=== PATIENT | male | born 2000 | race Caucasian/White ===

== ENCOUNTER 2023-09-20 22:54 | Emergency (ER) | payer SELFPAY ==
[2023-09-20] MEDS: LORazepam 2 MG/ML SDV IM PRN (23:41)
[2023-09-20 23:43] LABS: BICARBONATE,ARTERIAL 23.4 mmol/L (22.0-26.0); CARBOXYHEMOGLOBIN 2.2 % (0.0-1.6); METHEMOGLOBIN 0.6 %; O2 SATURATION ARTERIAL 98.8 % (95.0-98.0); PCO2 ARTERIAL 28.2 mmHg (35.0-42.0); PO2 ARTERIAL 98.6 mmHg (75.0-100.0); TOTAL HEMOGLOBIN 14.6 g/dL (13.5-18.0)
[2023-09-21 00:04] LABS: BASOPHILS ABSOLUTE AUTO 0.05 K/uL (0.00-0.10); BASOPHILS PERCENT AUTO 0.5 % (0.1-1.3); EOSINOPHILS PERCENT AUTO 3.1 % (0.0-5.4); HEMATOCRIT 40.1 % (38.4-49.7); HEMOGLOBIN 14.1 g/dL (12.9-16.9); IMMATURE GRAN PERCENT AUTO 0.2 % (0.0-0.7); LYMPHOCYTES ABSOLUTE AUTO 2.42 K/uL (0.8-3.3); LYMPHOCYTES PERCENT AUTO 25.2 % (11.4-47.7); MEAN CORPUSCULAR HEMOGLOBIN 27.3 pg (31.6-35.5); MEAN CORPUSCULAR HGB CONC 35.2 g/dL (31.6-35.5); MEAN CORPUSCULAR VOLUME 77.7 fL (81.4-99.0); MONOCYTES ABSOLUTE AUTO 0.93 K/uL (0.20-0.90); MONOCYTES PERCENT AUTO 9.7 % (3.3-12.6); NEUTROPHILS ABSOLUTE AUTO 5.88 K/uL (1.0-7.6); NEUTROPHILS PERCENT AUTO 61.3 % (40.0-78.1); PLATELET COUNT,PLT 332 K/uL (130-375); RED BLOOD CELL COUNT 5.16 M/uL (4.14-5.76); WHITE BLOOD CELL COUNT,WBC 9.6 K/uL (3.2-11.0)
[2023-09-21 00:05] LABS: IMMATURE GRAN ABSOLUTE AUTO 0.02 K/uL (0.00-0.23)
[2023-09-21 00:06] LABS: A/G RATIO 0.9 (1.2-2.2); ALANINE AMINOTRANSFERASE,ALT 51 U/L (12-78); ALBUMIN 3.7 g/dL (3.4-5.0); ALKALINE PHOSPHATASE 100 U/L (46-116); ASPARTATE AMNIOTRANSFERASE,AST 29 U/L (15-37); BILIRUBIN TOTAL 0.3 mg/dL (0.2-1.0); BLOOD UREA NITROGEN,BUN 15 mg/dL (7-18); CALCIUM 9.2 mg/dL (8.5-10.1); CARBON DIOXIDE,CO2 23 mmol/L (21-32); CHLORIDE,CL 102 mmol/L (100-108); EST CRCL DRUG DOSING (CG) 127.18 mL/min; ESTIMATED GFR 109 mL/min (>60); GLUCOSE RANDOM 124 mg/dL (74-106); POTASSIUM,K 3.9 mmol/L (3.6-5.2); PROTEIN TOTAL,TP 7.9 g/dL (6.4-8.2); SODIUM,NA 137 mmol/L (140-148)
[2023-09-21 00:07] LABS: ANION GAP 15.9 mmol/L (5.0-14.0)
[2023-09-21 02:27] LABS: AMPHETAMINES SCREEN, URINE NEGATIVE (NEGATIVE); BARBITURATE SCREEN,URINE NEGATIVE (NEGATIVE); BENZODIAZEPINES SCREEN,URINE NEGATIVE (NEGATIVE); METHADONE SCREEN, URINE NEGATIVE (NEGATIVE); METHAMPHETAMINES SCREEN, URINE NEGATIVE (NEGATIVE); OXYCODONE SCREEN,URINE NEGATIVE (NEGATIVE); PROPOXYPHENE SCREEN,URINE NEGATIVE (NEGATIVE); THC SCREEN,URINE 50 NG/ML NEGATIVE (NEGATIVE)
[2023-09-21 02:28] LABS: AMORPHOUS SEDIMENT,URINE FEW; APPEARANCE,URINE CLEAR (CLEAR); BACTERIA,URINE RARE; BILIRUBIN,URINE NEGATIVE (NEGATIVE); COLOR,URINE YELLOW (YELLOW); EPITHELIAL CELLS,URINE RARE; GLUCOSE,URINE NEGATIVE (NEGATIVE); KETONES,URINE TRACE mg/dL (NEGATIVE); LEUKOCYTE ESTERASE,URINE NEGATIVE (NEGATIVE); MUCUS,URINE NOT SEEN; NITRITE,URINE NEGATIVE (NEGATIVE); OCCULT BLOOD,URINE NEGATIVE (NEGATIVE); PROTEIN,URINE NEGATIVE (NEGATIVE); RBC,URINE 0-5 (0-5); UROBILINOGEN,URINE 0.2 EU/dL (0.2-1.0); WBC,URINE 0-5 (0-5)
== END 2023-09-21 01:19 | disposition home or self-care (01) ==
LOC: JP.ED 22:54
DX: M54.6 Pain in thoracic spine (principal); F45.8 Other somatoform disorders; F41.9 Anxiety disorder, unspecified
CPT/HCPCS: 36415; 36600; 71046; 80053; 80305; 81001; 82803; 83690; 85025; 93005; 96372; 99285; J2060